=== PATIENT | male | born 1975 | race Caucasian/White ===

== ENCOUNTER 2017-07-19 14:06 | Emergency (ER) | payer OTHER ==
[2017-07-19 14:23] VITALS: TEMP 98.9
[2017-07-19] MEDS ORDERED: IBUPROFEN 800 MG TAB PO STA (15:06)
[2017-07-19] MEDS ORDERED: HYDROmorphone 2 MG/ML 1 ML SYRINGE IM STA (15:06)
--- NOTE | 2017-07-19 15:11 | ED ---
General Adult HPI - General Chief complaint: Recheck/Abnormal Lab/Rx Stated complaint: Pain/Anal Time Seen by Provider: 07/19/17 14:38 Source: patient, RN notes reviewed, old records reviewed Mode of arrival: ambulatory Limitations: no limitations - History of Present Illness Initial comments: This is a 41-year-old male to the ER for evaluation regarding severe pain, severe anal pain and anal rectal pain. Patient is having bowel movements normally, taking stool softeners, he takes his medications secondary to recent diagnosis of colitis or internal hemorrhoids. He has not had follow-up since prior ER visit, is patient's second ER visit for same cause. Patient denies any other complaints, no blood in his stool no abdominal pain. No fevers - Related Data Previous Rx's Medication Instructions Recorded HYDROcodone/APAP 5-325MG [[place] 1 tab PO Q6HR PRN #30 tab 07/19/17 5-325] Naproxen [Naprosyn] 500 mg PO Q12HR #30 tab 07/19/17 Allergies Allergy/AdvReac Type Severity Reaction Status Date / Time No Known Allergies Allergy Verified 07/19/17 14:23 Review of Systems ROS Statement: Those systems with pertinent positive or pertinent negative responses have been documented in the HPI. ROS Other: All systems not noted in ROS Statement are negative. Past Medical History Past Medical History: No Reported History History of Any Multi-Drug Resistant Organisms: None Reported Past Surgical History: No Surgical Hx Reported Past Psychological History: No Psychological Hx Reported Smoking Status: Current some day smoker Past Alcohol Use History: Occasional Past Drug Use History: None Reported General Exam Limitations: no limitations General appearance: alert, in no apparent distress Head exam: Present: atraumatic, normocephalic, normal inspection Eye exam: Present: normal appearance, PERRL, EOMI. Absent: scleral icterus, conjunctival injection, periorbital swelling ENT exam: Present: normal exam, mucous membranes moist Neck exam: Present: normal inspection. Absent: tenderness, meningismus, lymphadenopathy Respiratory exam: Present: normal lung sounds bilaterally. Absent: respiratory distress, wheezes, rales, rhonchi, stridor Cardiovascular Exam: Present: regular rate, normal rhythm, normal heart sounds. Absent: systolic murmur, diastolic murmur, rubs, gallop, clicks GI/Abdominal exam: Present: soft, normal bowel sounds. Absent: distended, tenderness, guarding, rebound, rigid Extremities exam: Present: normal inspection, full ROM, normal capillary refill. Absent: tenderness, pedal edema, joint swelling, calf tenderness Back exam: Present: normal inspection Neurological exam: Present: alert, oriented X3, CN II-XII intact Psychiatric exam: Present: normal affect, normal mood Skin exam: Present: warm, dry, intact, normal color. Absent: rash Course Vital Signs 07/19/17 14:19 Temperature 98.9 F Pulse Rate 95 Respiratory 20 Rate Blood Pressure 122/66 O2 Sat by Pulse 99 Oximetry - Reevaluation(s) Reevaluation #1: 07/19/17 15:10 The patient at length regarding follow-up, patient is understanding Medical Decision Making - Medical Decision Making 41 male to [facility] for evaluation of anal pain, likely hemorrhoids versus colitis, Patient needs follow-up with GI for further evaluation regarding colonoscopy, sigmoidoscopy, patient understands, will follow up as directed Disposition Clinical Impression: Anal pain, Hemorrhoids, internal, Colitis Disposition: HOME SELF-CARE Condition: Good Instructions: Ulcerative Colitis (ED), Colitis (ED) Prescriptions: HYDROcodone/APAP 5-325MG [[place] 5-325] 1 tab PO Q6HR PRN #30 tab PRN Reason: Pain Naproxen [Naprosyn] 500 mg PO Q12HR #30 tab Referrals: Carlo Luque MD [STAFF PHYSICIAN] - 1-2 days Jacquelyn Oconnor MD [STAFF PHYSICIAN] - 1-2 days
[2017-07-19 16:01] VITALS: BP 157/74; PULSE 89; RESP 18
== END 2017-07-19 16:01 | disposition home or self-care (01) ==
LOC: EC 14:06
DX: K64.8 Other hemorrhoids (principal); K52.9 Noninfective gastroenteritis and colitis, unspecified; K62.89 Other specified diseases of anus and rectum; F17.200 Nicotine dependence, unspecified, uncomplicated
CPT/HCPCS: 99283; 96372; J1170